=== PATIENT | female | born 1970 | race African-American/Black ===

== ENCOUNTER 2022-01-07 12:13 | Emergency (ER) | payer OTHER ==
[2022-01-07 12:42] VITALS: BMI 27.2
[2022-01-07] MEDS ORDERED: IBUPROFEN 600 MG TABLET (FP) PO ONE ×2 (13:52→14:02)
[2022-01-07] MEDS ORDERED: METHOCARBAMOL 500 MG TABLET PO ONE (13:52)
[2022-01-07] MEDS ORDERED: METHOCARBAMOL 500 MG TABLET ONE (14:02)
[2022-01-07 14:34] VITALS: BP 155/94; PULSE 88; RESP 18; TEMP 98.1
== END 2022-01-07 14:35 | disposition home or self-care (01) ==
LOC: JER 12:13
DX: M54.2 Cervicalgia (principal); M25.512 Pain in left shoulder; V43.52XA Car driver injured in collision with other type car in traffic accident, initial encounter
CPT/HCPCS: 73030-TC-LT-FY; 99283-25

== ENCOUNTER 2022-10-04 13:35 | Emergency (ER) | payer OTHER ==
[2022-10-04 13:56] VITALS: BP 132/91; PULSE 90; RESP 18; TEMP 98; BMI 29.0
[2022-10-04] MEDS ORDERED: LIDOCAINE 5% TOPICAL PATCH TP ONE (15:57)
[2022-10-04] MEDS ORDERED: KETOROLAC TROMETHAMINE 30 MG/1 ML VIAL IM ONE (15:57)
[2022-10-04] MEDS ORDERED: METHOCARBAMOL 500 MG TABLET PO ONE (16:19)
[2022-10-04] MEDS ORDERED: LIDOCAINE 5% TOPICAL PATCH ONE (16:21)
[2022-10-04] MEDS ORDERED: KETOROLAC TROMETHAMINE 30 MG/1 ML VIAL ONE ×2 (16:21→16:22)
[2022-10-04] MEDS ORDERED: METHOCARBAMOL 500 MG TABLET ONE (16:21)
[2022-10-04] MEDS ORDERED: LIDOCAINE PATCH REMOVAL MC ONE (22:00)
== END 2022-10-04 17:31 | disposition home or self-care (01) ==
LOC: JERFT 13:35
PROC: 3E0233Z Introduction of Anti-inflammatory into Muscle, Percutaneous Approach (ICD-10-PCS; principal; 2022-10-04)
DX: M54.42 Lumbago with sciatica, left side (principal); X50.0XXA Overexertion from strenuous movement or load, initial encounter
CPT/HCPCS: 99284-25